=== PATIENT | male | born 2000 | race Caucasian/White ===

== ENCOUNTER 2024-08-04 20:56 | Emergency (ER) | payer SELFPAY ==
[~2024-08-04] VITALS: Ht 170.2 cm; Wt 75.0 kg
[2024-08-04 21:18] VITALS: TEMP 36.9; O2SAT 100
[2024-08-04] MEDS ORDERED: KETO10TA2 MT (22:27)
[2024-08-04 22:30] VITALS: BP 135/87; PULSE 77; RESP 16; TEMP 98.5
[2024-08-04] MEDS ORDERED: BO1 TP (22:30)
[2024-08-04] MEDS ORDERED: IBUP-2030 MT (22:30)
[2024-08-04] MEDS: KETOROLAC 30MG/ML VIAL IM ONE (22:30)
[2024-08-04] MEDS: ACETAMINOPHEN 325MG TABLET PO ONE (22:30)
[2024-08-04] MEDS: BACITRACIN ZINC OINT UDPKT TOP ONE (23:30)
== END 2024-08-04 23:31 | disposition home or self-care (01) ==
LOC: ER 20:56
DX: S62.302A Unspecified fracture of third metacarpal bone, right hand, initial encounter for closed fracture (principal); W19.XXXA Unspecified fall, initial encounter; Y93.89 Activity, other specified; Y92.89 Other specified places as the place of occurrence of the external cause; Y99.8 Other external cause status
CPT/HCPCS: 99283; 73130; 29125; J1885